=== PATIENT | female | born 1990 | race Caucasian/White ===

== ENCOUNTER 2017-08-01 06:56 | Day surgery (SDC) | payer BC, OTHER ==
[~2017-08-01] VITALS: Ht 180.3 cm; Wt 122.5 kg
--- NOTE | ~2017-08-01 | OP ---
PATIENT NAME: KATELYNN CARDONA MEDICAL RECORD: [id number] :91 LOCATION:MAT ADMISSION DATE: SURGEON: CORBIN GODINEZ DO DATE OF OPERATION: 08/01/2017 PROCEDURE PERFORMED: Right ACL reconstruction with lateral meniscal repair. The ACL reconstruction was done with a hamstring autograft and augmented with allograft. PREOPERATIVE DIAGNOSIS: Right anterior cruciate ligament complete tear. POSTOPERATIVE DIAGNOSIS: Right anterior cruciate ligament tear with lateral meniscal tear on the right knee. INDICATIONS: Ms. Cardona is a 26-year-old female who tore her ACL back in October of last year. She was at the time and could not do anything about the surgery until she had the baby, so she came and saw me in the office and liked her ACL to be reconstructed as she has been suffering with it. Her knee had been buckling and going out, and she does work as a horse handler for living and needs to have a stable knee. She said to work once this is expressed. She was explained of the risks and benefits of procedure and was understanding. DESCRIPTION OF PROCEDURE: The patient received a block in the preoperative area by anesthesia, was taken to the operative suite, laid in supine position. The right lower extremity was prepped and draped in sterile fashion. A tourniquet was placed above the knee. Once she was prepped and draped, a timeout performed. The patient was given 3 grams of Ancef preoperatively and the incisions were marked out. First timeout had been performed and everyone was in agreement with the correct site, side, and the patient. The tourniquet was then inflated and was up for 132 minutes total during the procedure. Incision was made to get the graft first approximately 6 cm from the joint line in a vertical fashion just medial to the tibial tubercle and distal. Careful dissection made down to sartorial fascia. Sartorial fascia was incised. The gracilis and semitendinosus were then harvested using scissors and a tendon stripper. Once harvested, the knee scoped again, we entered the lateral portal first with an 11 blade and the scope was entered and the knee was brought into extension. The suprapatellar pouch was inspected and no loose bodies were seen there. The patella and trochlea seem to be clean and no cartilage tears. The lateral gutter was also inspected and nothing was seen. Lateral gutters and medial gutters were same and then the knee was flexed down. Medial portal was established at that time. Probe was used to probe the medial meniscus and there was no tear seen in medial meniscus; however, the ACL was completely torn off of the lateral femoral condyle and this was noted. 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 We decided to repair at that time and 2 of the Damon and Nephew meniscal repair sutures were used to repair the lateral meniscus. Then, attention was drawn to the ACL. The footprint was cleaned off on the tibia as well as on the femur. Femoral drill guide was then entered in the knee, but approximately center being 8 mm from the posterior aspect of the lateral femoral condyle and the drill was advanced from outside in and then flipped and then 20 mm tunnel was done at that time a size 10. The graft was a 9.5. We did have to augment the graft. The gracilis was too thin and the gracilis was compliant with semi-T. Quadruples was only 7 cm, which was not adequate being 8. We then OPERATIVE REPORT [id number] KATELYNN CARDONA used the allograft, which measured to be 9.5 with the harvested semi-T. After the femoral tunnel was drilled, attention was drawn to the tibial tunnel. Extra fat pad had to be chewed out in order to get the guide in. The guide was set and put into place and then the guidepin was put in through the tibia. We then readjusted to put it more posterior at a 60-degree angle and then the first reamed with a 7 and then a 10. After this was done, the nitinol wire had been passed through the femoral tunnel. We brought that down through the tibial tunnel and the graft was passed up through both tunnels. The button was flipped on the femur and after the button was flipped, pulled hard on the graft with the knee in extension after we had cycled the knee 30 times and knee was held in extension and the bile screw size 10 x 25 was then entered in through the tunnel over guidewire. We then toggled the femoral side one more time to get the graft tighter and it was not possible and then we scoped the knee, probed the ACL, which seemed to be very taut and irrigated the graft harvest site very well and the tourniquet was let down at 132 minutes. The sartorial fascia was closed with 0 Vicryl and then the skin was closed with 2-0 Vicryl and 4-0 Monocryl running on the skin. The portal sites and the site where the femoral tunnel had been entered were all closed with 4-0 Monocryl in an inverted interrupted fashion. Steri-Strips were then placed over the each of the wounds and an Adaptic, 4 x 4's, ABD, Webril and Jhon wrap placed over the knee. The patient was placed into a knee immobilizer. She was awakened and taken to recovery in stable condition. TRANSINT:[id number] Voice Confirmation ID: [id number] DOCUMENT ID: [id number] CORBIN GODINEZ DO at 0815 CC: [id number] DICTATION DATE: 08/01/17 1412 STATIONARY ENGINEER REFRIGERATION: 08/01/17 1544 [facility] 08/01/17 [facility] [address] [place] [address]
[2017-08-01 07:44] VITALS: BP 126/81; Ht 180.3 cm; Wt 122.5 kg
[2017-08-01 08:10] LABS: HEMATOCRIT 39.7 % (36.0-48.0); HEMOGLOBIN 12.5 g/dL (12-16); MCH 25.8 pg (26.0-34.0); MCHC 31.5 g/dL (31.0-37.0); MEAN PLATELET VOLUME 11.1 fL (7.4-10.4); RBC 4.84 10x6/uL (4.00-5.40); RDW 13.9 % (11.5-14.5); WBC 7.3 10x3/uL (4.8-10.8)
[2017-08-01] MEDS ORDERED: PERCOCET 5-3251 TAB PO (14:01)
[2017-08-01] MEDS ORDERED: ECOTRIN325 MG PO (14:01)
== END 2017-08-01 15:50 | disposition home or self-care (01) ==
LOC: D.OPS 06:56
PROVIDERS: Anesthesiology
DX: S83.511A Sprain of anterior cruciate ligament of right knee, initial encounter (principal); S83.281A Other tear of lateral meniscus, current injury, right knee, initial encounter; M94.261 Chondromalacia, right knee; Z01.812 Encounter for preprocedural laboratory examination